=== PATIENT | female | born 1965 | race Caucasian/White ===

== ENCOUNTER 2017-04-30 12:21 | Emergency (ER) | payer BC ==
[2017-04-30 12:38] VITALS: BP 109/72
--- NOTE | 2017-04-30 12:54 | EDM.PDOC ---
[id number] THROAT Time Seen by Provider: 04/30/17 12:54 Source of Information: Reports: Patient History Limitations: Reports: No Limitations - History of Present Illness INITIAL COMMENTS - FREE TEXT/NARRATIVE: 52 yo white female c/o sore throat 2-3 days and exposed to family member with strep. 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 Musculoskeletal History: Reports: None Neurological History: Reports: None Psychiatric History: Reports: Anxiety, Depression Endocrine/Metabolic History: Reports: Hyperthyroidism Hematologic History: Reports: None Immunologic History: Reports: None Oncologic (Cancer) History: Reports: None Dermatologic History: Reports: None - Past Surgical History Head Surgeries/Procedures: Reports: None HEENT Surgical History: Reports: Eye Surgery Female Surgical History: Reports: Hysterectomy Social & Family History - Tobacco Use Smoking Status *Q: Never Smoker Second Hand Smoke Exposure: No - Caffeine Use Caffeine Use: Reports: Soda - Recreational Drug Use Recreational Drug Use: No ED ROS ENT - Review of Systems Review Of Systems: See Below Constitutional: Reports: No Symptoms HEENT: Reports: Throat Pain Respiratory: Reports: No Symptoms Cardiovascular: Reports: No Symptoms Endocrine: Reports: No Symptoms GI/Abdominal: Reports: No Symptoms : Reports: No Symptoms Musculoskeletal: Reports: No Symptoms Skin: Reports: No Symptoms Neurological: Reports: No Symptoms Psychiatric: Reports: No Symptoms Hematologic/Lymphatic: Reports: No Symptoms Immunologic: Reports: No Symptoms ED EXAM, ENT - Physical Exam Exam: See Below Exam Limited By: No Limitations General Appearance: Alert, WD/WN, No Apparent Distress Eye Exam: Bilateral Eye: PERRL Ears: Normal External Exam Nose: Normal Inspection, Normal Mucousa Mouth/Throat: Normal Inspection, Normal Gums, Normal Teeth, Throat Pain, Tonsillar Erythema Head: Atraumatic Neck: Lymphadenopathy (L), Lymphadenopathy (R) Respiratory/Chest: No Respiratory Distress, Lungs Clear Cardiovascular: Normal Peripheral Pulses, Regular Rate, Rhythm GI/Abdominal: Normal Bowel Sounds Back: Normal Inspection Extremities: Normal Inspection, Normal Range of Motion Neurological: Alert, Oriented, CN II-XII Intact Psychiatric: Normal Affect Skin: Warm Lymphatic: No Adenopathy Course - Vital Signs Last Recorded V/S: Last Vital Signs Temp 35.3 C 04/30/17 12:27 Pulse 120 H 04/30/17 12:37 Resp 16 04/30/17 12:37 BP 109/72 04/30/17 12:37 Pulse Ox 99 04/30/17 12:37 - Orders/Labs/Meds Orders: Active Orders 24 hr Category Date Time Status CULTURE STREP A CONFIRMATION [RM] Stat Lab 04/30/17 12:43 Results STREP SCRN A RAPID W CULT CONF [RM] Stat Lab 04/30/17 12:43 Results Meds: Medications Discontinued Medications Generic Name Dose Route Start Last Admin Trade Name Agueda PRN Reason Stop Dose Admin Al Hydroxide/Mg Hydroxide 30 ml 04/30/17 12:57 Gi Cocktail PO 04/30/17 12:58 ONETIME ONE Departure - Departure Time of Disposition: 13:00 Disposition: Home, Self-Care 01 Condition: Fair Clinical Impression: Pharyngitis - Discharge Information Forms: ED Department Discharge Additional Instructions: Rest Increase intake of Fluids ( Juice / Water) Take the oral antibiotic ( Penicillin 500mg Every 6 hours # 40) F/U with PCP - My Orders Last 24 Hours: My Active Orders 04/30/17 12:43 CULTURE STREP A CONFIRMATION [RM] Stat STREP SCRN A RAPID W CULT CONF [RM] Stat - Assessment/Plan Last 24 Hours: My Active Orders 04/30/17 12:43 CULTURE STREP A CONFIRMATION [RM] Stat STREP SCRN A RAPID W CULT CONF [RM] Stat
[2017-04-30] MEDS ORDERED: GI Cocktail Oral Solution 30 ML PO ONE (12:57)
== END 2017-04-30 13:16 | disposition home or self-care (01) ==
LOC: DL.ED 12:21
DX: J02.9 Acute pharyngitis, unspecified (principal); F41.9 Anxiety disorder, unspecified; F32.9 Major depressive disorder, single episode, unspecified; E05.90 Thyrotoxicosis, unspecified without thyrotoxic crisis or storm; Z90.710 Acquired absence of both cervix and uterus; Z79.899 Other long term (current) drug therapy
CPT/HCPCS: 87081; 87430; 99283; A9270

== ENCOUNTER 2019-07-12 03:52 | Emergency (ER) | payer BC ==
[2019-07-12] MEDS ORDERED: GI Cocktail Oral Solution 30 ML PO ONE (04:05)
--- NOTE | 2019-07-12 04:08 | EDM.PDOC ---
ED HPI GENERAL MEDICAL PROBLEM - General Chief Complaint: Abdominal Pain Stated Complaint: PAIN GOING THROUGH BACK Time Seen by Provider: 07/12/19 04:05 Source of Information: Reports: Patient History Limitations: Reports: No Limitations - History of Present Illness INITIAL COMMENTS - FREE TEXT/NARRATIVE: woke up with epiG pain going to back. had this before and rolaids help but not this time. ate spaghetti tonight. Treatments SUPERINTENDENT GAS DISTRIBUTION: Reports: Other (see below) Other Treatments SUPERINTENDENT GAS DISTRIBUTION: rolaids Epigastric Pain Score (Numeric/FACES): 7 - Related Data Allergies Allergy/AdvReac Type Severity Reaction Status Date / Time erythromycin base Allergy Cannot Verified 07/12/19 04:09 Remember Home Meds: Home Meds Escitalopram [Lexapro] 20 mg PO DAILY 04/30/17 [History] Levothyroxine Sodium [Synthroid] 125 mcg PO DAILY 04/30/17 [History] traZODone HCl [Trazodone HCl] 50 mg PO BEDTIME PRN 07/12/19 [History] Past Medical History Cardiovascular History: Reports: None Respiratory History: Reports: None Gastrointestinal History: Reports: GERD Genitourinary History: Reports: None 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 Musculoskeletal History: Reports: None Neurological History: Reports: None Psychiatric History: Reports: Anxiety, Depression Endocrine/Metabolic History: Reports: Hyperthyroidism Hematologic History: Reports: None Immunologic History: Reports: None Oncologic (Cancer) History: Reports: None Dermatologic History: Reports: None - Past Surgical History Head Surgeries/Procedures: Reports: None HEENT Surgical History: Reports: Eye Surgery Female Surgical History: Reports: Hysterectomy Social & Family History - Family History Family Medical History: Noncontributory - Caffeine Use Caffeine Use: Reports: Soda ED ROS GENERAL - Review of Systems Review Of Systems: ROS reveals no pertinent complaints other than HPI. ED EXAM, GI/ABD - Physical Exam Exam: See Below Exam Limited By: No Limitations General Appearance: Alert, WD/WN, Mild Distress, Other (discomfort). No: Active Emesis Ears: Hearing Grossly Normal Throat/Mouth: Normal Voice, No Airway Compromise Head: Atraumatic Neck: Non-Tender, Full Range of Motion Respiratory/Chest: No Respiratory Distress Cardiovascular: Regular Rate, Rhythm GI/Abdominal Exam: Tender, Abnormal Bowel Sounds, Other (hyper BS, epiG tender) . No: Distended, Guarding, Rigid, Rebound Neurological: Alert, Oriented, Normal Cognition, Normal Gait, No Motor/Sensory Deficits Psychiatric: Flat Affect Skin Exam: Warm, Dry, Normal Color Lymphatic: No Adenopathy Course - Vital Signs Last Recorded V/S: Last Vital Signs Temp 36.3 C 07/12/19 04:08 Pulse 115 H 07/12/19 04:08 Resp 18 07/12/19 04:08 BP 157/85 H 07/12/19 04:08 Pulse Ox 98 07/12/19 04:08 - Orders/Labs/Meds Labs: Laboratory Tests 07/12/19 07/12/19 07/12/19 Range/Units 04:00 04:00 04:00 WBC 10.5 H (5.0-10.0) 10^3/uL RBC 4.29 (4.2-5.4) 10^6/uL Hgb 13.6 (12.0-16.0) g/dL Hct 40.9 (37.0-47.0) % MCV 95.3 (80-100) fL MCH 31.7 (27.0-34.0) pg MCHC 33.3 (33.0-35.0) g/dL Plt Count 364 (150-450) 10^3/uL Neut % (Auto) 52.2 (42.2-75.2) % Lymph % (Auto) 32.5 (20.5-50.1) % Charlton % (Auto) 12.1 H (2-8) % Eos % (Auto) 2.8 (1.0-3.0) % Baso % (Auto) 0.4 (0.0-1.0) % Sodium 138 (135-145) mmol/L Potassium 3.6 (3.6-5.0) mmol/L Chloride 100 L (101-111) mmol/L Carbon Dioxide 28.0 (21.0-31.0) mmol/L Anion Gap 13.6 BUN 17 (7-18) mg/dL Creatinine 0.9 (0.6-1.3) mg/dL Est Cr Clr Drug Dosing 57.74 mL/min Estimated GFR (MDRD) > 60 BUN/Creatinine Ratio 18.88 Glucose 112 H (74-105) mg/dL Lactic Acid 0.9 (0.5-2.2) mmol/L Calcium 9.3 (8.4-10.2) mg/dl Total Bilirubin 0.5 (0.2-1.0) mg/dL AST 32 (10-42) IU/L ALT 36 (10-60) IU/L Alkaline Phosphatase 90 (42-121) IU/L Troponin I (0.00-0.02) ng/ml Total Protein 8.1 (6.7-8.2) g/dl Albumin 4.3 (3.2-5.5) g/dl Globulin 3.8 Albumin/Globulin Ratio 1.13 Amylase 25 L (28-100) U/L Lipase 31 (22-51) U/L 07/12/19 Range/Units 04:00 WBC (5.0-10.0) 10^3/uL RBC (4.2-5.4) 10^6/uL Hgb (12.0-16.0) g/dL Hct (37.0-47.0) % MCV (80-100) fL MCH (27.0-34.0) pg MCHC (33.0-35.0) g/dL Plt Count (150-450) 10^3/uL Neut % (Auto) (42.2-75.2) % Lymph % (Auto) (20.5-50.1) % Charlton % (Auto) (2-8) % Eos % (Auto) (1.0-3.0) % Baso % (Auto) (0.0-1.0) % Sodium (135-145) mmol/L Potassium (3.6-5.0) mmol/L Chloride (101-111) mmol/L Carbon Dioxide (21.0-31.0) mmol/L Anion Gap BUN (7-18) mg/dL Creatinine (0.6-1.3) mg/dL Est Cr Clr Drug Dosing mL/min Estimated GFR (MDRD) BUN/Creatinine Ratio Glucose (74-105) mg/dL Lactic Acid (0.5-2.2) mmol/L Calcium (8.4-10.2) mg/dl Total Bilirubin (0.2-1.0) mg/dL AST (10-42) IU/L ALT (10-60) IU/L Alkaline Phosphatase (42-121) IU/L Troponin I < 0.02 (0.00-0.02) ng/ml Total Protein (6.7-8.2) g/dl Albumin (3.2-5.5) g/dl Globulin Albumin/Globulin Ratio Amylase (28-100) U/L Lipase (22-51) U/L Meds: Medications Discontinued Medications Generic Name Dose Route Start Last Admin Trade Name Freq PRN Reason Stop Dose Admin Al Hydroxide/Mg Hydroxide 30 ml 07/12/19 04:05 07/12/19 04:09 Gi Cocktail PO 07/12/19 04:06 30 ml ONETIME ONE Administration Ketorolac Tromethamine 30 mg 07/12/19 04:39 07/12/19 04:49 Toradol IVPUSH 07/12/19 04:40 30 mg ONETIME ONE Administration Ondansetron HCl 4 mg 07/12/19 04:39 07/12/19 04:47 Zofran IV 07/12/19 04:40 4 mg ONETIME ONE Administration Pantoprazole Sodium 40 mg 07/12/19 04:39 07/12/19 04:51 Protonix Iv IVPUSH 07/12/19 04:40 40 mg ONETIME ONE Administration - Re-Assessments/Exams Free Text/Narrative Re-Assessment/Exam: 07/12/19 04:40 re-exam: s/p GI cocktail = '0' 07/12/19 05:18 s/p IV Rx = better Departure - Departure Time of Disposition: 05:18 Disposition: Home, Self-Care 01 Condition: Good Clinical Impression: Abdominal pain Qualifiers: Abdominal location: epigastric Qualified Code(s): R10.13 - Epigastric pain - Discharge Information Instructions: Abdominal Pain, Adult Forms: ED Department Discharge Additional Instructions: 1) see clinic in morning for GALL BLADDER ULTRASOUND 2) avoid fatty oily spicy foods next 4 days 3) recheck as needed rx given; pepcid 20mg daily x 20
[2019-07-12 04:09] VITALS: BP 157/85; PULSE 115
[2019-07-12 04:27] LABS: ANION GAP 13.6; CHLORIDE,CL 100 mmol/L (101-111); SODIUM,NA 138 mmol/L (135-145)
[2019-07-12] MEDS ORDERED: Pantoprazole 40 MG Vial IVPUSH ONE (04:39)
[2019-07-12] MEDS ORDERED: Ketorolac 30 MG/ML SDV IVPUSH ONE (04:39)
[2019-07-12] MEDS ORDERED: Ondansetron 4 MG/2 ML SDV IV ONE (04:39)
== END 2019-07-12 05:30 | disposition home or self-care (01) ==
LOC: DL.ED 03:52
DX: R10.13 Epigastric pain (principal); E03.9 Hypothyroidism, unspecified; F32.9 Major depressive disorder, single episode, unspecified; Z88.1 Allergy status to other antibiotic agents; Z79.890 Hormone replacement therapy; Z79.899 Other long term (current) drug therapy
CPT/HCPCS: 36415; 80053; 82150; 83605; 83690; 84484; 85025; 96374; 96375; 99284; A9270; C9113; J1885; J2405